=== PATIENT | female | born 1950 | race Caucasian/White ===

== ENCOUNTER 2017-02-14 14:06 | Emergency (ER) | payer BC ==
[2017-02-14 14:19] VITALS: BP 157/77
--- NOTE | 2017-02-14 14:59 | UC ---
Lower Extremity/Ankle HPI - HPI Summary HPI Summary: 66F presents with left foot pain for a week. She denies any injury. pain is located over the dorsum of 1-2nd metatarsal. She denies any numbness or tingling. She states noticed some swelling over the area. She denies any history of gout. She denies any rash or fever. She states sometimes she has a sharp electric like pain in that area when she flexes her toes. She has no pain at rest only when places weight on the area. She took some ibuprofen that helped. She is not diabetic. <Maricel Cardoza - Last Filed: 02/14/17 15:20> <Tiffany Cifuentes - Last Filed: 02/14/17 16:09> - History of Current Complaint Chief Complaint: UCLowerExtremity Stated Complaint: FOOT PAIN Time Seen by Provider: 02/14/17 14:42 - Allergies/Home Medications Allergies/Adverse Reactions: Allergies Allergy/AdvReac Type Severity Reaction Status Date / Time No Known Allergies Allergy Verified 02/14/17 14:19 PMH/Surg Hx/FS Hx/Imm Hx Endocrine History: Other Other Endocrine History: no DM Respiratory History: Other Other Respiratory History: no COPD - Surgical History Surgical History: Yes Surgery Procedure, Year, and Place: right shoulder - decompression tonsils - Family History Known Family History: Positive: Diabetes, Other - CANCER Negative: Cardiac Disease - Social History Alcohol Use: Rare Alcohol Amount: a couple times a week - 1-2 drinks Substance Use Type: None Smoking Status (MU): Never Smoked Tobacco - Immunization History Most Recent Influenza Vaccination: 2017 Most Recent Tetanus Shot: unknown Most Recent Pneumonia Vaccination: not for a very long time Vaccination Up to Date: Yes <Maricel Cardoza - Last Filed: 02/14/17 15:20> Review of Systems Constitutional: Negative Musculoskeletal: Myalgia - left foot pain All Other Systems Reviewed And Are Negative: Yes <Maricel Cardoza - Last Filed: 02/14/17 15:20> Physical Exam Triage Information Reviewed: Yes Appearance: Well-Appearing Vital Signs: Initial Vital Signs Temp 98.7 F 02/14/17 14:14 Pulse 81 02/14/17 14:14 Resp 16 02/14/17 14:14 BP 157/77 02/14/17 14:14 Pulse Ox 100 02/14/17 14:14 Vital Signs Reviewed: Yes Eyes: Positive: Conjunctiva Clear Respiratory: Positive: Lungs clear, Normal breath sounds Cardiovascular: Positive: RRR Musculoskeletal: Positive: Strength Intact - left foot, ROM Intact - left foot, Other: - tender over dorsum of 1st and 2nd metatarsal, pain with flexion of toes in that area, good pulse, capillary refill<2 secs. Negative: Edema @ Neurological Exam: Normal Psychological Exam: Normal Skin Exam: Normal Skin: Negative: rashes <Maricel Cardoza - Last Filed: 02/14/17 15:20> Vital Signs: Initial Vital Signs Temp 98.7 F 02/14/17 14:14 Pulse 81 02/14/17 14:14 Resp 16 02/14/17 14:14 BP 157/77 02/14/17 14:14 Pulse Ox 100 02/14/17 14:14 <Tiffany Cifuentes - Last Filed: 02/14/17 16:09> Diagnostics - Radiology foot Xray Interpretation: No Acute Changes Radiology Interpretation Completed By: Radiologist <Maricel Cardoza - Last Filed: 02/14/17 15:20> Lower Extremity Course/Dx - Course Course Of Treatment: 66F presents with left foot pain for a week. She denies any injury. pain is located over the dorsum of 1-2nd metatarsal. She denies any numbness or tingling. She states noticed some swelling over the area. She denies any history of gout. She denies any rash or fever. She states sometimes she has a sharp electric like pain in that area when she flexes her toes. She has no pain at rest only when places weight on the area. She took some ibuprofen that helped. She is not diabetic. has full ROM of foot. tender over dorsum of 1-2nd metatarsal. pain with flexion of toes. xray normal. likely tenditis. will treat with RICE. gave referral for podiatry. patient understand and agrees with plan. - Differential Dx/Diagnosis Differential Diagnosis/HQI/PQRI: Fracture (Closed), Sprain, Strain Provider Diagnoses: left foot pain <Maricel Cardoza - Last Filed: 02/14/17 15:20> Discharge <Maricel Cardoza - Last Filed: 02/14/17 15:20> <Tiffany Cifuentes - Last Filed: 02/14/17 16:09> - Discharge Plan Condition: Good Disposition: HOME Patient Education Materials: Tendinitis (ED) Forms: *Work Release Referrals: ANABELLA PERDOMO [Doctor of Podiatric Medicine] - Julianna Upton MD [Primary Care Provider] - Additional Instructions: Pain likely due to tenditis Wear hard sole shoes Ice, elevate, rest Take ibuprofen every 6 hours Follow up with podiatry if no improvement Return to ED if develop any new or worsening symptoms Attestation Statement User Type: Provider - I was available for consult. This patient was seen by the RAJ. The patient was not presented to, seen by, or examined by me. -Power <Tiffany Cifuentes - Last Filed: 02/14/17 16:09>
--- NOTE | 2017-02-14 15:00 | RAD ---
INDICATION: Left foot pain COMPARISON: None TECHNIQUE: AP, lateral, and oblique views were obtained. FINDINGS: The bony structures, joint spaces, and soft tissues are normal for age. IMPRESSION: NO ACUTE BONY FINDINGS. IF THERE IS PERSISTENT PAIN, SUGGEST FOLLOW-UP IN 7-10 DAYS
== END 2017-02-14 15:10 | disposition home or self-care (01) ==
LOC: UCEAST 14:06
DX: M79.672 Pain in left foot (principal)
CPT/HCPCS: 99212; G0463

== ENCOUNTER 2018-11-27 07:30 | Day surgery (SDC) | payer BC, MEDICARE ==
[~2018-11-27 07:30] MED LIST: Acetaminophen TAB* 325 MG PO PRN
[2018-11-27] MEDS ORDERED: fentaNYL* 50 MCG/ML 2 ML VIAL (100 MCG VIAL) ONE (08:33)
[2018-11-27] MEDS ORDERED: Midazolam* 1 MG/ML 2 ML VIAL (2 MG) ONE (08:33)
[2018-11-27 09:52] VITALS: BP 120/81
--- NOTE | 2018-11-27 09:58 | OP ---
DATE OF OPERATION: 11/27/18 - [facility] DATE OF : 54 SURGEON: Cameron Li MD ANESTHESIA: Monitored anesthesia care. PRE-OP DIAGNOSIS: Cataract, left eye. POST-OP DIAGNOSIS: Cataract, left eye. OPERATIVE PROCEDURE: Extracapsular cataract extraction of the left eye with intraocular lens implant. IMPLANTS: SN60WF 21.5 diopter lens to the left eye. COMPLICATIONS: None. DESCRIPTION OF PROCEDURE: The patient was given phenylephrine 2.5 % and cyclopentolate 1% eye drops to the operative eye in the preoperative area. The patient was taken to the operating room where a time-out was taken to identify the correct patient, site, and side of surgery. The patient's left eye was prepped and draped in the usual sterile fashion with 5% Betadine. A second time- out was taken to verify the correct patient, side, and site of surgery, as well as the correct lens implant. A lid speculum was placed to the left eye. A 1mm paracentesis blade was used to make a clear corneal incision. Preservative-free 1% lidocaine was injected into the anterior chamber. DisCoVisc was then injected into the anterior chamber. A 2.75 mm keratome blade was used to make a triplanar incision. A cystotome initiated a capsulorrhexis, which was completed with Utrata forceps in a continuous and curvilinear manner. Hydrodissection of the lens was performed with BSS on a cannula. The lens could be spun in a capsular bag. The phacoemulsification handpiece was used with a divide-and- conquer technique to remove the nucleus. The I/A handpiece then removed the residual cortical lens material. DisCoVisc was injected to inflate the capsular bag. The planned SN60WF 21.5 diopter lens was injected into the capsular bag. The residual DisCoVisc was removed from the eye with the I/A handpiece. The corneal incisions were hydrated and no leaks occurred at physiologic pressure around 20 mmHg per palpation. The lid speculum was removed and drapes were removed. Maxitrol ointment was placed to the surface of the operative eye. An adhesive patch and shield was then placed on the operative eye. The patient was taken to the postoperative area in stable condition. [id number]/[facility] #: [id number] [facility]
[2018-11-27] MEDS ORDERED: Cyclopentolate 1% OPTH.SOL* 2 ML BTL ONE (11:09)
[2018-11-27] MEDS ORDERED: Povidone Iodine 5% OPTH* 30 ML BTL ONE (11:09)
[2018-11-27] MEDS ORDERED: Phenylephrine OPHTH SOL 2.5%* 2 ML ONE (11:09)
[2018-11-27] MEDS ORDERED: Tropicamide 1% OPTH.SOL* BTL ONE (11:09)
[2018-11-27] MEDS ORDERED: Lidocaine 1% MPF ** 5 ML VIAL ONE (11:09)
[2018-11-27] MEDS ORDERED: Ketorolac 0.5% OPHTH (NF) 0.5 % 5 ML BTL ONE (11:09)
[2018-11-27] MEDS ORDERED: Neomycin/Polymy/Dex OPHTH.OIN* 3.5 GM ONE (11:09)
[2018-11-27] MEDS ORDERED: acetaZOLAMIDE TAB* 250 MG ONE (11:09)
[2018-11-27] MEDS ORDERED: Tetracaine 0.5% OPTH.SOL 4 ML* 1 DROP BTL ONE (11:09)
== END 2018-11-27 09:40 | disposition home or self-care (01) ==
LOC: OREAST 07:30
PROVIDERS: ATTEND Student in an Organized Health Care Education/Training Program
DX: H25.12 Age-related nuclear cataract, left eye (principal); M85.80 Other specified disorders of bone density and structure, unspecified site; F41.8 Other specified anxiety disorders; M81.0 Age-related osteoporosis without current pathological fracture
CPT/HCPCS: A9270-GY; J2250; J3010; V2632

== ENCOUNTER 2018-12-04 08:19 | Day surgery (SDC) | payer BC, MEDICARE ==
[2018-12-04] MEDS ORDERED: Midazolam* 1 MG/ML 5 ML VIAL (5 MG) ONE (09:31)
[2018-12-04] MEDS ORDERED: fentaNYL* 50 MCG/ML 2 ML VIAL (100 MCG VIAL) ONE (09:31)
[2018-12-04 10:23] VITALS: BP 120/67
[2018-12-04] MEDS ORDERED: Neomycin/Polymy/Dex OPHTH.OIN* 3.5 GM ONE (15:47)
[2018-12-04] MEDS ORDERED: Phenylephrine OPHTH SOL 2.5%* 2 ML ONE (15:47)
[2018-12-04] MEDS ORDERED: Ketorolac 0.5% OPHTH (NF) 0.5 % 5 ML BTL ONE (15:47)
[2018-12-04] MEDS ORDERED: Lidocaine 1% MPF ** 5 ML VIAL ONE (15:47)
[2018-12-04] MEDS ORDERED: Tetracaine 0.5% OPTH.SOL 4 ML* 1 DROP BTL ONE (15:47)
[2018-12-04] MEDS ORDERED: Povidone Iodine 5% OPTH* 30 ML BTL ONE (15:47)
[2018-12-04] MEDS ORDERED: Cyclopentolate 1% OPTH.SOL* 2 ML BTL ONE (15:47)
[2018-12-04] MEDS ORDERED: Tropicamide 1% OPTH.SOL* BTL ONE (15:47)
[2018-12-04] MEDS ORDERED: acetaZOLAMIDE TAB* 250 MG ONE (15:47)
--- NOTE | 2018-12-04 18:07 | OP ---
DATE OF OPERATION: 12/04/18 - [facility] DATE OF : 54 SURGEON: Cameron Li MD ANESTHESIA: Monitored anesthesia care. PREOPERATIVE DIAGNOSIS: Cataract, right eye. POSTOPERATIVE DIAGNOSIS: Cataract, right eye. OPERATIVE PROCEDURE: Extracapsular cataract extraction of the right eye with intraocular lens implant. IMPLANT: SN60WF 22.0 diopter lens to the right eye. COMPLICATIONS: None. DESCRIPTION OF PROCEDURE: The patient was given phenylephrine 2.5 % and cyclopentolate 1% eye drops to the operative eye in the preoperative area. The patient was taken to the operating room where a time-out was taken to identify the correct patient, site, and side of surgery. The patient's right eye was prepped and draped in the usual sterile fashion with 5% Betadine. A second time- out was taken to verify the correct patient, side, and site of surgery, as well as the correct lens implant. A lid speculum was placed to the right eye. A 1mm paracentesis blade was used to make a clear corneal incision. Preservative-free 1% lidocaine was injected into the anterior chamber. DisCoVisc was then injected into the anterior chamber. A 2.75 mm keratome blade was used to make a triplanar incision. A cystotome initiated a capsulorrhexis, which was completed with Utrata forceps in a continuous and curvilinear manner. Hydrodissection of the lens was performed with BSS on a cannula. The lens could be spun in a capsular bag. The phacoemulsification handpiece was used with a divide-and- conquer technique to remove the nucleus. The I/A handpiece then removed the residual cortical lens material. DisCoVisc was injected to inflate the capsular bag. The planned SN60WF 22.0 diopter lens was injected into the capsular bag. The residual DisCoVisc was removed from the eye with the I/A handpiece. The corneal incisions were hydrated and no leaks occurred at physiologic pressure around 20 mmHg per palpation. The lid speculum was removed and drapes were removed. Maxitrol ointment was placed to the surface of the operative eye. An adhesive patch and shield was then placed on the operative eye. The patient was taken to the post-operative area in stable condition. [id number]/[facility] #: [id number] [facility]
== END 2018-12-04 10:38 | disposition home or self-care (01) ==
LOC: OREAST 08:19
PROVIDERS: ATTEND Student in an Organized Health Care Education/Training Program
DX: H25.11 Age-related nuclear cataract, right eye (principal); K21.0 Gastro-esophageal reflux disease with esophagitis; M19.90 Unspecified osteoarthritis, unspecified site; F41.8 Other specified anxiety disorders
CPT/HCPCS: A9270-GY; J2250; J3010; V2632

== ENCOUNTER 2024-03-01 17:11 | Observation (INO) ==
[2024-03-01 18:55] LABS: ABS Basophils 0.1 10^3/uL (0.0-0.1); ABS Monocytes 0.8 10^3/uL (0.0-0.9); ABS Neutrophils 9.6 10^3/uL (1.5-7.6); Eosinophil % 0.1 %; Hematocrit 35.4 % (35-45); Hemoglobin 11.9 g/dL (11.5-14.3); Lymphocyte % 8.5 %; Mean Corpuscular Hemoglobin 30.4 pg (27-33); Mean Corpuscular Hgb Conc 33.6 g/dL (31-36); Mean Corpuscular Volume 90.5 fL (80-97); Mean Platelet Volume 8.5 fL (7.5-11.2); Platelet Count 237 10^3/uL (150-450); Red Blood Count 3.91 10^6/uL (3.63-4.92); Red Cell Distribution Width 13.2 % (12-17); White Blood Count 11.5 10^3/uL (3.8-11.8)
[2024-03-01 19:34] LABS: Albumin 4.1 g/dL (3.2-5.2); Albumin/Globulin Ratio 1.8 (1-3); C Reactive Protein 4.68 mg/L (<8.01); Calcium 9.5 mg/dL (8.6-10.3); Creatinine, Serum 0.6 mg/dL (0.51-0.95); Globulin 2.3 g/dL (2-4); Potassium 4.1 mmol/L (3.5-5.0); Total Bilirubin 1.1 mg/dL (0.2-1.0); Total Protein 6.4 g/dL (6.4-8.9); eGFR CKD-EPI 95.9 (>60)
[2024-03-01] MEDS: Iohexol 350 (CONTRAST) 500 ML MDV IV ONE (20:58)
[2024-03-01] MEDS: Piperacillin/Tazobac 3.375 BAG 3.375 GM/100 ML BAG IV ONE (23:34)
[2024-03-01] MEDS: Acetaminophen IV 1 GM/100ML 1,000 MG/100 ML BAG IV ONE (23:34)
[2024-03-01] MEDS ORDERED: Zosyn per Pharmacy NOTE FOLLOW UP SCH (23:45)
[2024-03-02] MEDS: Lactated Ringers 1000 ml BAG 1,000 ML IV ONE (00:36)
[2024-03-02] MEDS: ZOSYN 3.375 GM Q8H per EXTENDED INFUSION IV SCH (03:48)
[2024-03-02] MEDS ORDERED: Morphine 2 MG/ML SYRINGE IV PRN (12:17)
[2024-03-02] MEDS ORDERED: Acetaminophen IV 1 GM/100ML 1,000 MG/100 ML BAG IV PRN (12:17)
[2024-03-02] MEDS ORDERED: Ondansetron 4 mg VIAL 2 MG/ML 2 ml VIAL IV PRN ×2 (12:28→15:59)
[2024-03-02] MEDS ORDERED: Lactated Ringers 1000 ml BAG 1,000 ML IV SCH ×2 (13:00→16:00)
[2024-03-02] MEDS ORDERED: Lidocaine 2% JELLY 6 ML Topical TOPICAL ONE (15:00)
[2024-03-02] MEDS ORDERED: Lidocaine 2% PF 5 ML VIAL ONE (15:00)
[2024-03-02] MEDS ORDERED: Lidocaine 2% JELLY 10 ML JELLY ONE (15:00)
[2024-03-02] MEDS ORDERED: Midazolam 2 mg/2 ml VIAL 1 mg/ml 2 ml VIAL (2 mg) ONE (15:05)
[2024-03-02] MEDS ORDERED: fentaNYL 100 mcg/2 ml 50 MCG/ML VIAL ONE ×2 (15:05→16:21)
[2024-03-02] MEDS ORDERED: Rocuronium 50 mg VIAL 10 mg/ml 5 ml VIAL (50 mg) ONE (15:06)
[2024-03-02] MEDS ORDERED: Bupivacaine 0.25% SDV 30 ML ONE (15:20)
[2024-03-02] MEDS ORDERED: Ondansetron 4 mg VIAL 2 MG/ML 2 ml VIAL ONE (15:48)
[2024-03-02] MEDS ORDERED: Dexamethasone IV 4 MG/ML VIAL 1 ml VIAL ONE (15:48)
[2024-03-02] MEDS ORDERED: Buffered Lidocaine 1% SYRIN 1 ml INTRADERM ONE (15:59)
[2024-03-02] MEDS ORDERED: Acetaminophen IV 1 GM/100ML 1,000 MG/100 ML BAG IV ONE (15:59)
[2024-03-02] MEDS ORDERED: Scopolamine 1 mg/72hr PATCH TRANSDERM ONE (15:59)
[2024-03-02] MEDS ORDERED: Naloxone 0.4 mg VIAL 0.4 mg/ml 1 ml VIAL IV PRN (15:59)
[2024-03-02] MEDS ORDERED: fentaNYL 100 mcg/2 ml 50 MCG/ML VIAL IV PRN (15:59)
[2024-03-02 17:29] VITALS: BP 129/81
== END 2024-03-02 18:05 | disposition home or self-care (01) ==
LOC: ED 17:11 → EDHOLD 17:11 → SUATTDRO 23:03 → AA 03-02 13:35
PROVIDERS: ADMIT Hospitalist; ATTEND Surgery Surgical Critical Care